=== PATIENT | female | born 2000 | race American Indian/Alaskan Native ===

== ENCOUNTER 2019-07-04 11:45 | Emergency (ER) | payer OTHER ==
[2019-07-04] MEDS ORDERED: Ketorolac 60 MG/2 ML SDV IM ONE (12:07)
--- NOTE | 2019-07-04 12:13 | EDM.PDOC ---
ED HPI GENERAL MEDICAL PROBLEM - General Chief Complaint: Lower Extremity Injury/Pain Stated Complaint: LT KNEE INJURY Time Seen by Provider: 07/04/19 11:52 Source of Information: Reports: Patient, RN Notes Reviewed History Limitations: Reports: No Limitations - History of Present Illness INITIAL COMMENTS - FREE TEXT/NARRATIVE: Patient is a 27-year-old female who presents to the ED for evaluation of left knee pain. The patient notes that her left knee has been a problem for her for many years. She states that however 2 days ago she ended up twisting her left knee, and this is increased the pain. She states that she has a history of an easily dislocatable kneecap. This happens quite frequently, and is getting worse. She has not had any surgeries on this knee however. Patient states that it is difficult to walk, it is very painful. It hurts to bear weight, and she has been walking around with quite a limp. She does not have a regular care provider, she has never had an MRI done on the knee. She is not taking any medications at home. She states she has multiple braces, but states it is very difficult to fully extend her knee, so she has not been able to use the braces with ambulation today. Left Knee Pain Score (Numeric/FACES): 6 - Related Data Allergies Allergy/AdvReac Type Severity Reaction Status Date / Time No Known Allergies Allergy Verified 07/04/19 11:58 Home Meds: Home Meds . [No Known Home Meds] 06/25/19 [History] Past Medical History Musculoskeletal History: Reports: Other (See Below) Other Musculoskeletal History: chronic L knee issues, L knee cap dislocation Psychiatric History: Reports: Anxiety Social & Family History - Tobacco Use Smoking Status *Q: Current Every Day Smoker Years of Tobacco use: 5 Packs/Tins Daily: 0.5 - Caffeine Use Caffeine Use: Reports: Coffee - Recreational Drug Use Recreational Drug Use: No Review of Systems - Review of Systems Review Of Systems: Comprehensive ROS is negative, except as noted in HPI. Musculoskeletal: Reports: Joint Pain (L knee), Joint Swelling (L laterall knee) Neurological: Reports: Numbness (slight into L toes), Tingling (slight into L toes), Difficulty Walking (walks with limp d/t knee pain) ED EXAM, GENERAL - Physical Exam Exam: See Below Exam Limited By: No Limitations General Appearance: Alert, WD/WN, No Apparent Distress Eye Exam: Bilateral Eye: EOMI, Normal Inspection, PERRL Respiratory/Chest: No Respiratory Distress, Lungs Clear, Normal Breath Sounds, No Accessory Muscle Use, Chest Non-Tender Cardiovascular: Normal Peripheral Pulses, Regular Rate, Rhythm, No Murmur Peripheral Pulses: 3+: Radial (L), Radial (R), Dorsalis Pedis (L), Dorsalis Pedis (R) Extremities: Normal Inspection, Normal Capillary Refill, Joint Swelling (L lateral inferior knee), Limited Range of Motion (of left knee d/t pain), Other ( mild tenderness about the L knee, no obvious laxity of the joint) Neurological: Alert, Oriented, CN II-XII Intact (grossly), Normal Cognition, Normal Gait (walks with limp d/t knee pain. otherwise WNL), No Motor/Sensory Deficits Psychiatric: Normal Affect, Normal Mood Skin Exam: Warm, Dry, Intact, Normal Color, No Rash Course - Vital Signs Last Recorded V/S: Last Vital Signs Temp 97 F 07/04/19 11:56 Pulse 75 07/04/19 11:56 Resp 16 07/04/19 11:56 BP 131/78 07/04/19 11:56 Pulse Ox 100 07/04/19 11:56 - Orders/Labs/Meds Meds: Medications Discontinued Medications Generic Name Dose Route Start Last Admin Trade Name Johnna PRN Reason Stop Dose Admin Ketorolac Tromethamine 60 mg 07/04/19 12:07 07/04/19 12:17 Toradol IM 07/04/19 12:08 60 mg ONETIME ONE Administration - Re-Assessments/Exams Free Text/Narrative Re-Assessment/Exam: 07/04/19 12:13 Patient presents to the ED for evaluation of left knee pain. Fairly obvious that there is some sort of soft tissue/tendon issue with her left knee. Will provide the patient with an outpatient MRI order, and have her follow-up with Dr. Campos for further management. Patient will be given a 60 mg IM injection of Toradol for initial management in the ER. Departure - Departure Time of Disposition: 12:14 Disposition: Home, Self-Care 01 Condition: Fair Clinical Impression: Left knee sprain Qualifiers: Encounter type: initial encounter Involved ligament of knee: unspecified ligament Qualified Code(s): S83.92XA - Sprain of unspecified site of left knee, initial encounter Left knee pain Qualifiers: Chronicity: chronic Qualified Code(s): M25.562 - Pain in left knee - Discharge Information *PRESCRIPTION DRUG MONITORING PROGRAM REVIEWED*: No *COPY OF PRESCRIPTION DRUG MONITORING REPORT IN PATIENT FRANCI: No Instructions: Joint Pain, [id number] Referrals: PCP,None [Primary Care Provider] - Forms: ED Department Discharge, ED Return to Work/School Form Additional Instructions: You have been evaluated in the ED for your left knee pain/sprain. You were provided with an outpatient MRI order for evaluation of the soft tissues of your left knee. Our radiology department will call to schedule you for this appointment. If you have not heard from them by Friday, please call [phone] and ask for the x-ray department. Please use ice as tolerated to the affected area. Recommend that you try using a knee immobilizing brace as much as possible, to help provide further swelling relief and help allow the knee to heal from the recent sprain. Recommend that you ibuprofen 600mg q6 hrs for pain relief. Please do so until you have a tolerable level of pain with activity. Do not exceed 3200mg ibuprofen in a 24 hour time period. Please call Ortho for follow-up and further evaluation Dr. Campos is our orthopedic surgeon, his office number is [phone]. Please call and set up an appointment after your MRI has been completed for further management. Please return to ED if your symptoms should change or worsen. Sepsis Event Note - Evaluation Sepsis Screening Result: No Definite Risk - Focused Exam Vital Signs: Vital Signs Temp Pulse Resp BP Pulse Ox 07/04/19 11:56 97 F 75 16 131/78 100 Date Exam was Performed: 07/04/19 Time Exam was Performed: 12:31
== END 2019-07-04 12:48 | disposition home or self-care (01) ==
LOC: JD.ED 11:45 → MERGE 11:45 → JD.ED 12:48
DX: S83.92XA Sprain of unspecified site of left knee, initial encounter (principal); F17.210 Nicotine dependence, cigarettes, uncomplicated; X50.1XXA Overexertion from prolonged static or awkward postures, initial encounter
CPT/HCPCS: 96372; 99283; J1885